=== PATIENT | female | born 1950 | race Caucasian/White ===

== ENCOUNTER 2017-12-01 19:28 | Inpatient (IN) | payer OTHER ==
[~2017-12-01] VITALS: Ht 162.6 cm; Wt 61.2 kg
[2017-12-01] MEDS ORDERED: KETOROLAC TROMETH 30 MG/ML 1ML VIAL IV ONE (19:45)
[2017-12-01] MEDS ORDERED: fentaNYL CITRATE 100 MCG/2 ML VL IV ONE (19:45)
[2017-12-01 21:53] LABS: Basophils # (auto) 0 uL; Basophils % (auto) 0.3 % (0.0-2.0); Eosinophils # (auto) 0.1 uL; Eosinophils % (auto) 0.4 % (0.0-7.0); Hematocrit 44.4 % (36.0-46.0); Lymphocytes # (auto) 1.6 uL; Lymphocytes % (auto) 12.1 % (10.0-50.0); Mean Corpuscular Hemoglobin 29.5 pg (28.0-32.0); Mean Corpuscular Hgb Conc. 33.7 g/dL (32.0-36.0); Mean Corpuscular Volume 87.6 fL (80.0-100.0); Monocytes # (auto) 0.7 uL; Neutrophils # (auto) 10.9 uL; Neutrophils % (auto) 82.2 % (37.0-80.0); Nucleated Red Blood Cells % 0.1 %; Platelet Count (auto) 253 10^3/uL (140-450); Red Blood Cells 5.07 10^6/uL (4.0-5.20); Red Cell Distribution Width 13.3 % (11.8-14.3); White Blood Cell 13.3 10^3/uL (4.4-10.8)
[2017-12-01 22:07] LABS: INR 0.92 (0.9-1.15); Prothrombin Time 9.9 sec (9.27-12.13)
[2017-12-01 22:16] LABS: Albumin 4.1 g/dL (3.4-5.0); BUN/Creatinine Ratio 16.2; Bilirubin, Total 0.4 mg/dL (0.2-1.0); Calcium 9.4 mg/dL (8.5-10.1); Potassium 3.9 mmol/L (3.5-5.1); Total Protein 7.8 g/dL (6.4-8.2)
[2017-12-01 22:43] LABS: Urine Bacteria NONE SEEN /hpf (None Seen); Urine Blood Negative /uL (Negative); Urine Specific Gravity 1.007 (1.001-1.035); Urine WBC 1 /hpf (0 - 5)
[2017-12-01] MEDS ORDERED: ACETAMINOPHEN 325 MG TAB PO PRN (22:45)
[2017-12-01] MEDS ORDERED: ONDANSETRON HCL 4 MG/2 ML VIAL IV PRN (22:45)
[2017-12-01] MEDS ORDERED: TEMAZEPAM 15 MG CAP PO PRN (22:45)
[2017-12-01] MEDS ORDERED: MORPHINE SULFATE 8mg/ml INJ SDV IV PRN (22:45)
[2017-12-02] VITALS (7 sets, daily range): BP systolic 126–158; BP diastolic 68–84
[2017-12-02] MEDS ORDERED: CITA-73 PO (01:19)
[2017-12-02] MEDS ORDERED: LUBI8CAP4 PO (01:19)
[2017-12-02] MEDS ORDERED: GABA100C9 PO (01:19)
[2017-12-02] MEDS ORDERED: ZOLP10TA PO (01:19)
[2017-12-02] MEDS: HYDROcodone-ACET 5/325MG TAB PO PRN ×4 (03:22→23:05)
[2017-12-02 07:02] LABS: Basophils # (auto) 0 uL; Basophils % (auto) 0.4 % (0.0-2.0); Eosinophils # (auto) 0.1 uL; Eosinophils % (auto) 1.2 % (0.0-7.0); Hematocrit 42.5 % (36.0-46.0); Hemoglobin 14.1 g/dL (12.2-16.2); Lymphocytes # (auto) 1.6 uL; Lymphocytes % (auto) 18.3 % (10.0-50.0); Mean Corpuscular Hemoglobin 29.4 pg (28.0-32.0); Mean Corpuscular Hgb Conc. 33.2 g/dL (32.0-36.0); Mean Corpuscular Volume 88.4 fL (80.0-100.0); Monocytes # (auto) 0.6 uL; Monocytes % (auto) 7.1 % (0.0-12.0); Neutrophils # (auto) 6.3 uL; Nucleated Red Blood Cells % 0.1 %; Platelet Count (auto) 229 10^3/uL (140-450); Red Blood Cells 4.81 10^6/uL (4.0-5.20); Red Cell Distribution Width 13.5 % (11.8-14.3); White Blood Cell 8.6 10^3/uL (4.4-10.8)
[2017-12-02 07:29] LABS: Potassium 3.8 mmol/L (3.5-5.1)
[2017-12-02 07:36] LABS: BUN/Creatinine Ratio 16.5; Calcium 8.9 mg/dL (8.5-10.1)
[2017-12-02 07:37] LABS: Albumin 3.8 g/dL (3.4-5.0)
[2017-12-02 07:45] LABS: Bilirubin, Total 0.6 mg/dL (0.2-1.0); Total Protein 7.2 g/dL (6.4-8.2)
[2017-12-02] MEDS: CITALOPRAM HYDROBR 20 MG TAB PO SCH (09:32)
[2017-12-02] MEDS: ENOXAPARIN SOD 40 MG/0.4 ML SYRINGE SC SCH (09:33)
[2017-12-02] MEDS: FAMOTIDINE 20 MG TAB PO SCH ×2 (09:33→21:19)
[2017-12-02] MEDS ORDERED: MORPHINE SULFATE 4 MG/ML SYR/VIAL IV PRN (21:45)
[2017-12-03 05:00] VITALS: BP 145/75
[2017-12-03] MEDS: HYDROcodone-ACET 5/325MG TAB PO PRN ×2 (07:53→12:28)
[2017-12-03 09:00] VITALS: BP 131/81
[2017-12-03] MEDS: FAMOTIDINE 20 MG TAB PO SCH (09:25)
[2017-12-03] MEDS: CITALOPRAM HYDROBR 20 MG TAB PO SCH (09:25)
[2017-12-03] MEDS: ENOXAPARIN SOD 40 MG/0.4 ML SYRINGE SC SCH (09:25)
== END 2017-12-03 12:56 | disposition home or self-care (01) | DRG 552 ==
LOC: EDBD 19:28 → ER 19:28 → OVERFLOW 19:29 → CENTRAL 23:54
PROVIDERS: ADMIT Nurse Practitioner; ATTEND Internal Medicine Geriatric Medicine
DX: S32.010A Wedge compression fracture of first lumbar vertebra, initial encounter for closed fracture (principal); F32.9 Major depressive disorder, single episode, unspecified; S33.5XXA Sprain of ligaments of lumbar spine, initial encounter; I70.0 Atherosclerosis of aorta; M54.5 Low back pain; W01.0XXA Fall on same level from slipping, tripping and stumbling without subsequent striking against object, initial encounter; Y93.89 Activity, other specified; Y92.89 Other specified places as the place of occurrence of the external cause; Y99.8 Other external cause status; Z88.1 Allergy status to other antibiotic agents; Z88.0 Allergy status to penicillin
CPT/HCPCS: 36415; 71045; 72131; 80053; 81001; 85025; 85610; 93005; 96374; 96375; J1885

== ENCOUNTER 2017-12-04 19:10 | Emergency (ER) | payer OTHER ==
[~2017-12-04] VITALS: Ht 157.5 cm; Wt 70.3 kg
[~2017-12-04 19:10] MED LIST: CITA-73 PO; GABA100C9 PO; LUBI8CAP4 PO; ZOLP10TA PO
[2017-12-04 19:27] VITALS: BP 179/94
[2017-12-04] MEDS ORDERED: MORPHINE SULFATE 8mg/ml INJ SDV IM ONE (20:30)
== END 2017-12-04 21:07 | disposition home or self-care (01) ==
LOC: EDBD 19:10 → ER 19:10
DX: S32.019A Unspecified fracture of first lumbar vertebra, initial encounter for closed fracture (principal); Z88.0 Allergy status to penicillin; Z88.1 Allergy status to other antibiotic agents; W19.XXXA Unspecified fall, initial encounter; Y93.89 Activity, other specified; Y92.89 Other specified places as the place of occurrence of the external cause; Y99.8 Other external cause status
CPT/HCPCS: 96372

== ENCOUNTER 2019-12-04 20:02 | Emergency (ER) | payer OTHER ==
[~2019-12-04] VITALS: Ht 167.6 cm; Wt 61.2 kg
[2019-12-04 20:39] LABS: Basophils # (auto) 0.1 10 ^3/uL (0-0.2); Basophils % (auto) 0.9 % (0.0-2.0); Eosinophils # (auto) 0.2 10 ^3/uL (0-0.8); Eosinophils % (auto) 3.2 % (0.0-7.0); Hematocrit 41.4 % (36.0-46.0); Hemoglobin 14.2 g/dL (12.2-16.2); Lymphocytes # (auto) 2.3 10 ^3/uL (0.4-5.4); Lymphocytes % (auto) 36.6 % (10.0-50.0); Mean Corpuscular Hemoglobin 30.1 pg (28.0-32.0); Mean Corpuscular Hgb Conc. 34.3 g/dL (32.0-36.0); Mean Corpuscular Volume 87.8 fL (80.0-100.0); Monocytes # (auto) 0.4 10 ^3/uL (0-1.3); Monocytes % (auto) 7.1 % (0.0-12.0); Neutrophils # (auto) 3.3 10 ^3/uL (1.6-8.6); Neutrophils % (auto) 52.2 % (37.0-80.0); Platelet Count (auto) 214 10^3/uL (140-450); Red Blood Cells 4.71 10^6/uL (4.0-5.20); Red Cell Distribution Width 13.5 % (11.8-14.3); White Blood Cell 6.3 10^3/uL (4.4-10.8)
[2019-12-04 20:56] LABS: Albumin 3.9 g/dL (3.4-5.0); Anion Gap 6 (5-15); Blood Urea Nitrogen 18 mg/dL (7-18); Calcium 8.7 mg/dL (8.5-10.1); Carbon Dioxide 28 mmol/L (21-32); Chloride 107 mmol/L (98-107); Glucose 104 mg/dL (74-106); Magnesium 2.6 mg/dL (1.6-2.6); Potassium 3.5 mmol/L (3.5-5.1); Sodium 141 mmol/L (136-145)
[2019-12-04 21:03] LABS: Alanine Aminotransferase 37 U/L (13-56); Alkaline Phosphatase 63 U/L (45-117); Aspartate Aminotransferase 22 U/L (15-37); BUN/Creatinine Ratio 22.8; Bilirubin, Total 0.4 mg/dL (0.2-1.0); GFR African American 93 mL/min; GFR Non-African American 77 mL/min; Total Protein 7.3 g/dL (6.4-8.2)
[2019-12-04] MEDS ORDERED: cloNIDine HCL 0.1 MG TAB PO ONE (21:30)
[2019-12-04 21:33] LABS: Urine Bacteria NONE SEEN /hpf (None Seen); Urine Blood Negative /uL (Negative); Urine Specific Gravity 1.011 (1.001-1.035); Urine WBC 2 /hpf (0 - 5)
[2019-12-04 22:30] VITALS: BP 139/84
== END 2019-12-04 23:03 | disposition home or self-care (01) ==
LOC: EDBD 20:02 → ER 20:02
DX: I24.9 Acute ischemic heart disease, unspecified (principal); E78.5 Hyperlipidemia, unspecified; I10 Essential (primary) hypertension; Z90.710 Acquired absence of both cervix and uterus; Z87.442 Personal history of urinary calculi; Z88.0 Allergy status to penicillin; Z88.1 Allergy status to other antibiotic agents
CPT/HCPCS: 36415; 71045; 80053; 81001; 83735; 83880; 84484; 85025; 93005